=== PATIENT | female | born 1955 | race Caucasian/White ===

== ENCOUNTER 2020-08-28 13:57 | Emergency (ER) | payer BC ==
[~2020-08-28] VITALS: Ht 160 cm; Wt 81.7 kg
[2020-08-28] MEDS ORDERED: METFORMIN HCL500 M2 PO (14:03)
[2020-08-28] MEDS ORDERED: LOSARTAN POTASS25 M2 PO (14:03)
[2020-08-28 14:53] LABS: BASOPHILS ABSOLUTE AUTO 0.04 K/mm3 (0.00-0.23); BASOPHILS PERCENT AUTO 1 % (0-2); EOSINOPHILS ABSOLUTE AUTO 0.18 K/mm3 (0.00-0.68); EOSINOPHILS PERCENT AUTO 3 % (0-6); Hematocrit 41.3 % (33.0-51.0); Hemoglobin 13.5 g/dL (11.5-16.0); IMMATURE GRAN ABSOLUTE AUTO 0.01 K/mm3 (0.00-0.10); IMMATURE GRAN PERCENT AUTO 0 % (0-1); LYMPHOCYTES ABSOLUTE AUTO 2.46 K/mm3 (0.84-5.20); LYMPHOCYTES PERCENT AUTO 36 % (21-46); MONOCYTES ABSOLUTE AUTO 0.41 K/mm3 (0.16-1.47); MONOCYTES PERCENT AUTO 6 % (4-13); Mean Corpuscular HGB 28.7 pg (26.0-34.0); Mean Corpuscular HGB Conc 32.7 g/dL (31.5-36.5); Mean Corpuscular Volume 88 fL (80-100); Mean Platelet Volume 9.8 fL (9.1-12.4); NEUTROPHILS ABSOLUTE AUTO 3.66 K/mm3 (1.96-9.15); NEUTROPHILS PERCENT AUTO 54 % (41-73); Platelet Count 271 K/mm3 (150-400); RDW Coefficient Variation 12.4 % (11.7-14.2); RDW Standard Deviation 40.3 fL (35.1-46.3); Red Blood Cell Count 4.71 M/mm3 (3.80-5.20); White Blood Cell Count 6.76 K/mm3 (4.00-11.30)
[2020-08-28 15:22] LABS: Alanine Aminotransfer (ALT/SGP 38 U/L (12-78); Albumin, Blood 4.2 g/dL (3.4-5.0); Albumin/Globulin Ratio 1.1 (0.8-1.8); Alk Phos 80 U/L (50-136); Anion Gap 10 mmol/L (6-16); Aspartate Aminotrans (AST/SGOT 23 U/L (12-37); Bilirubin, Total 0.4 mg/dL (0.1-1.0); Blood Urea Nitrogen 21 mg/dL (8-24); CO2, Blood 24 mmol/L (21-32); Chloride, Blood 107 mmol/L (98-108); Creatinine, Blood 0.87 mg/dL (0.40-1.00); Globulin, Blood 3.8 g/dL (2.2-4.0); Glomerular Filtration Rate >60 (60-); Glucose, Blood 104 mg/dL (70-99); Potassium, Blood 3.5 mmol/L (3.5-5.5); Sodium, Blood 141 mmol/L (136-145)
[2020-08-28 15:55] LABS: International Normalized Ratio 0.96; Prothrombin Time Results 10.3 Sec (9.7-11.5)
== END 2020-08-28 16:21 | disposition home or self-care (01) ==
LOC: ER 13:57
PROVIDERS: Emergency Medicine
DX: R20.0 Anesthesia of skin (principal); R25.1 Tremor, unspecified
CPT/HCPCS: 36415; 70450; 73120; 80053; 82947; 85025; 85610; 85730; 93005; 93010; 99284-25

== ENCOUNTER → 2022-08-17 | Outpatient (CLI) | payer OTHER ==
[~2022-08-17] MED LIST: LOSARTAN POTASS25 M2 PO; METFORMIN HCL500 M2 PO
[2022-08-18 14:10] LABS: HPV 16 Negative (Negative); HPV 18 Negative (Negative); HPV OTHER HR TYPES Negative (Negative)
== END | disposition home or self-care (01) ==
LOC: LAB 11:22 → RAD SHORT 11:22
PROVIDERS: Obstetrics & Gynecology
DX: Z01.419 Encounter for gynecological examination (general) (routine) without abnormal findings (principal)
CPT/HCPCS: 87624; G0123

== ENCOUNTER → 2023-01-04 | Outpatient (CLI) | payer OTHER | END | disposition home or self-care (01) | LOC: LAB SHORT 07:00 → LAB 07:00 → LAB FUT 12-24 09:25 | DX: N20.0 Calculus of kidney (principal) | CPT/HCPCS: 81050 ==

== ENCOUNTER → 2023-01-05 | Outpatient (CLI) | payer OTHER ==
[2023-01-25 07:12] LABS: BRUSHITE 0.41 ratio (0.00-3.00); CALCIUM OXALATE 8.41 ratio (0.00-6.00); CALCIUM, URINE 22.5 mg/dL (Not Estab.); CHLORIDE URINE 128 (38-210); CITRIC ACID (CITRATE) 415 mg/L (Not Estab.); CITRIC ACID(CITRATE) 415 mg/24 hr (320-1240); CREATININE, URINE 97.3 mg/dL (Not Estab.); MAGNESIUM, URINE 7.2 mg/dL (Not Estab.); MONOSODIUM URATE 0.44 ratio (0.00-4.00); OSMOLALITY, URINE 796 (300-900); SODIUM, URINE 139 (39-258); SODIUM, URINE 139 mmol/L (Not Estab.); STRUVITE 0.01 ratio (0.00-1.00); URIC ACID 1.26 ratio (0.00-1.20); URINE VOLUME (PRESERVATIVE) 1000 mL/24 hr (600-1600)
[2023-01-25 11:29] LABS: URINE VOLUME 1000 mL/24 hr (600-1600)
== END ==
LOC: LAB 07:04 → LAB SHORT 07:04
PROVIDERS: Urology
DX: N20.0 Calculus of kidney (principal)
CPT/HCPCS: 81003; 82131; 82140; 82340; 82436; 82507; 82570; 83735; 83935; 83945; 84105; 84133; 84300; 84392; 84560